=== PATIENT | male | born 1950 | race Caucasian/White ===

== ENCOUNTER → 2023-06-08 | Emergency (ER) | payer MEDICARE ==
[~2023-06-08] MED LIST: KETOROLAC 30 MG/ML INJ ONE; MORPHINE 4 MG/ML SYR ONE; ONDANSETRON 4 MG/2 ML VIAL ONE
[2023-06-08 02:35] LABS: Absolute Lymphocytes (CBC) 1.1 K/uL (0.7-4.9); MCV 90.9 fL (80-100); MPV 7.5 fL (7.6-11.3); Platelets 220 thou/uL (152-406); RBC Red Blood Cell Count 4.51 M/uL (4.33-5.43)
[2023-06-08 02:52] LABS: Albumin 3.3 g/dL (3.4-5.0); Bilirubin Total 0.5 mg/dL (0.2-1.0); Potassium 3.7 mEq/L (3.5-5.1); Protein, Total 7.3 g/dL (6.4-8.2)
[2023-06-08 03:12] LABS: Specific Gravity 1.029 (1.005-1.030); Urine Bacteria None Seen /HPF (<20); Urine Bilirubin NEGATIVE (Negative); Urine Blood 3+ (OVER) (Negative); Urine Clarity Extremely Turbid (Clear); Urine Color Yellow (Yellow); Urine Glucose TRACE (Negative); Urine Mucus Slight /HPF (None Seen); Urine Protein 1+ (Negative); Urine RBC >50 /HPF (None Seen); Urine Urobilinogen Normal (Normal)
--- NOTE | 2023-06-08 04:38 | ER ---
Nurse's Notes [facility] Name: Neil Nolen Age: 73 yrs Sex: Male : 1950 Arrival Date: 06/08/2023 Time: 01:33 Bed 5 Private MD: Diagnosis: Calculus of ureter Presentation: 06/08 01:54 Chief complaint: Patient states: abd pain started 2 days ago, rad to right flank. with rv nausea and vomiting. worse today. denies diarrhea and constipation. noted blood in urine, frequency and urgency. Coronavirus screen: At this time, the client does not indicate any symptoms associated with coronavirus-19. Ebola Screen: No symptoms or risks identified at this time. Initial Sepsis Screen: Does the patient meet any 2 criteria? No. Patient's initial sepsis screen is negative. Does the patient have a suspected source of infection? No. Patient's initial sepsis screen is negative. Risk Assessment: Do you want to hurt yourself or someone else? Patient reports no desire to harm self or others. Onset of symptoms was June 08, 2023. 01:54 Method Of Arrival: Ambulatory rv 01:54 Acuity: MAYE 3 rv Triage Assessment: 01:56 General: Appears in no apparent distress. Behavior is calm, cooperative. Pain: rv Complains of pain in abdomen Pain radiates to right flank. Neuro: Level of Consciousness is awake, alert, obeys commands, Oriented to person, place, time, situation. Cardiovascular: Capillary refill < 3 seconds Patient's skin is warm and dry. Respiratory: Airway is patent Respiratory effort is even, unlabored. GI: Abdomen is round distended, Pt is actively vomiting undigested food, Reports upper abdominal pain, nausea, vomiting. : Reports urinary frequency, blood in urine. Derm: Skin is intact. Historical: - Allergies: :56 No Known Allergies; rv - PMHx: :56 Hypertensive disorder; Hypercholesterolemia; rv - PSHx: :56 Coronary artery bypass graft; hernia repair; rv - Immunization history:: Adult Immunizations up to date. - Social history:: Smoking status: Patient denies any tobacco usage or history of. - Family history:: not pertinent. Screenin:58 [facility] ED Fall Risk Assessment (Adult) History of falling in the last 3 months, rv including since admission No falls in past 3 months (0 pts) Score/Fall Risk Level 0 - 2 = Low Risk Oriented to surroundings, Maintained a safe environment, Educated pt \T\ family on fall prevention, incl call for assistance when getting out of bed, Assessed \T\ reinforced patient's understanding of fall precautions. Abuse screen: Denies threats or abuse. Denies injuries from another. Nutritional screening: No deficits noted. Tuberculosis screening: No symptoms or risk factors identified. Assessment: 01:59 GI: Bowel sounds present X 4 quads. Abd is soft and non tender X 4 quads. rv 03:40 General: Pt c/o persistent pain to abdomen. Provider Notified . jw7 Vital Signs: 01:45 BP 161 / 74; Pulse 64; Resp 20; Temp 98; Pulse Ox 91% on 2 lpm NC; as9 01:54 BP 161 / 80; Pulse 86; Resp 16; Temp 98; Pulse Ox 93% ; Weight 146.06 kg; Height 6 ft. rv 1 in. ; 02:00 BP 160 / 76; Pulse 66; Resp 20; Pulse Ox 94% on 2 lpm NC; as9 03:00 BP 142 / 59; Pulse 66; Resp 19; Pulse Ox 92% on 2 lpm NC; as9 04:30 BP 128 / 53; Pulse 71; Resp 18; Temp 98; Pulse Ox 94% on R/A; as9 01:54 Body Mass Index 42.48 (146.06 kg, 185.42 cm) rv ED Course: 01:34 Patient arrived in ED. jj6 01:37 Cedric Pendleton MD is Attending Physician. rt 01:56 Triage completed. rv 01:56 Arm band placed on right wrist. rv 01:58 Patient has correct armband on for positive identification. Client placed on continuous rv cardiac and pulse oximetry monitoring. NIBP monitoring applied. night monitor on. 01:59 No provider procedures requiring assistance completed. rv 02:24 CBC with Diff Sent. as9 02:24 CMP Sent. as9 02:24 Lipase Sent. as9 02:25 Inserted saline lock: 20 gauge in right forearm, using aseptic technique. as9 03:28 CT Abd/Pelvis - IV Contrast Only In Process Unspecified. EDMS 04:36 Esvin Norton MD is Referral Physician. rt 04:56 Haroon Oconnor, JEISON is Primary Nurse. as9 05:05 Provided Education on: discharge medication, instructions and follow up given and as9 explained well to the patient and family.. 05:05 IV discontinued, intact, bleeding controlled, No redness/swelling at site. Pressure as9 dressing applied. Administered Medications: 02:24 Drug: Ondansetron IVP 4 mg IVP once; over 2 minutes Route: IVP; Site: right forearm; as9 04:58 Follow up: Response: No adverse reaction; Marked relief of symptoms; Pain is decreased; as9 RASS: Alert and Calm (0) 02:24 Drug: morphine IVP or IV 4 mg IVP once over 4 mins Route: IVP; Infused Over: 4 mins; as9 Site: right forearm; 04:58 Follow up: Response: No adverse reaction; Marked relief of symptoms; Pain is decreased; as9 RASS: Alert and Calm (0) 03:53 Drug: Ketorolac IVP 30 mg IVP once Route: IVP; Site: right forearm; jw7 04:57 Follow up: Response: No adverse reaction; Marked relief of symptoms as9 03:53 Drug: morphine IVP or IV 4 mg IVP once over 4 mins Route: IVP; Infused Over: 4 mins; jw7 Site: right antecubital; 04:57 Follow up: Response: No adverse reaction; Marked relief of symptoms; Pain is decreased as9 04:57 Follow up: Response: RASS: Alert and Calm (0) as9 Medication: 01:58 VIS not applicable for this client. rv Outcome: 04:37 Discharge ordered by . rt 04:59 Discharged to home ambulatory, as9 04:59 Condition: good 04:59 Discharge instructions given to patient, family, Instructed on discharge instructions, follow up and referral plans. medication usage, Demonstrated understanding of instructions, follow-up care, medications, 05:08 Patient left the ED. as9 Signatures: Dispatcher [employer] EDMS Damon Dai RN RN rv Loan [email or web address] Maria Guadalupe Oliva RN RN jw7 Cedric Pendleton MD MD rt Haroon Oconnor RN RN as9
--- NOTE | 2023-06-08 04:38 | EDPHYS ---
Physician Documentation [facility] Name: Neil Nolen Age: 73 yrs Sex: Male : 1950 Arrival Date: 06/08/2023 Time: 01:33 Bed 5 Private MD: ED Physician Cedric Pendleton HPI: 06/08 04:24 This 73 yrs old Male presents to ER via Ambulatory with complaints of Abdominal Pain, rt Low Back Pain, Urinary Incontinence. 04:24 Patient presents to the ED with a lower abdominal pain rating to the right flank for rt the past few days. Patient has blood in his urine. Reports increased urinary frequency. He denies other complaints at this time, symptoms are moderate severity, no other aggravating alleviating factors.. Historical: - Allergies: :56 No Known Allergies; rv - PMHx: :56 Hypertensive disorder; Hypercholesterolemia; rv - PSHx: :56 Coronary artery bypass graft; hernia repair; rv - Immunization history:: Adult Immunizations up to date. - Social history:: Smoking status: Patient denies any tobacco usage or history of. - Family history:: not pertinent. ROS: 04:24 Constitutional: Negative for fever, chills, and weight loss, Cardiovascular: Negative rt for chest pain, palpitations, and edema, Respiratory: Negative for shortness of breath, cough, wheezing, and pleuritic chest pain, MS/Extremity: Negative for injury and deformity, Skin: Negative for injury, rash, and discoloration, Neuro: Negative for headache, weakness, numbness, tingling, and seizure, 04:24 Abdomen/GI: Positive for abdominal pain, Negative for vomiting, 04:24 : Positive for Hematuria, frequency, Exam: 04:24 Constitutional: This is a well developed, well nourished patient who is awake, alert, rt and in no acute distress. Head/Face: Normocephalic, atraumatic. Chest/axilla: Normal chest wall appearance and motion. Nontender with no deformity. No lesions are appreciated. Cardiovascular: Regular rate and rhythm with a normal S1 and S2. No gallops, murmurs, or rubs. Normal PMI, no JVD. No pulse deficits. Respiratory: Lungs have equal breath sounds bilaterally, clear to auscultation and percussion. No rales, rhonchi or wheezes noted. No increased work of breathing, no retractions or nasal flaring. Skin: Warm, dry with normal turgor. Normal color with no rashes, no lesions, and no evidence of cellulitis. MS/ Extremity: Pulses equal, no cyanosis. Neurovascular intact. Full, normal range of motion. Neuro: Awake and alert, GCS 15, oriented to person, place, time, and situation. Cranial nerves II-XII grossly intact. Motor strength 5/5 in all extremities. Sensory grossly intact. Cerebellar exam normal. Normal gait. Psych: Awake, alert, with orientation to person, place and time. Behavior, mood, and affect are within normal limits. 04:24 Abdomen/GI: Mild distention noted, tenderness in suprapubic region without rebound, guarding, distention, Vital Signs: 01:45 BP 161 / 74; Pulse 64; Resp 20; Temp 98; Pulse Ox 91% on 2 lpm NC; as9 01:54 BP 161 / 80; Pulse 86; Resp 16; Temp 98; Pulse Ox 93% ; Weight 146.06 kg; Height 6 ft. rv 1 in. ; 02:00 BP 160 / 76; Pulse 66; Resp 20; Pulse Ox 94% on 2 lpm NC; as9 03:00 BP 142 / 59; Pulse 66; Resp 19; Pulse Ox 92% on 2 lpm NC; as9 04:30 BP 128 / 53; Pulse 71; Resp 18; Temp 98; Pulse Ox 94% on R/A; as9 01:54 Body Mass Index 42.48 (146.06 kg, 185.42 cm) rv MDM: 01:45 Patient medically screened. rt 04:41 Differential diagnosis: Ureteral stone, urinary retention, gross hematuria. Data rt reviewed: vital signs, nurses notes, lab test result(s), radiologic studies. I considered the following discharge prescriptions or medication management in the emergency department Medications were administered in the Emergency Department. See MAR. Independent interpretation of the following test(s) in the Emergency Department CT Scan: My interpretation is Ureteral stone seen on interpretation of CT scan images. Care significantly affected by the following chronic conditions: Hypertension. Response to treatment: the patient's symptoms have markedly improved after treatment. 06/08 01:54 Order name: CBC with Diff; Complete Time: 03:26 rt 06/08 01:54 Order name: CMP; Complete Time: 03:26 rt 06/08 01:54 Order name: Lipase; Complete Time: 03:26 rt 06/08 01:54 Order name: Urinalysis w/ reflexes; Complete Time: 03:26 rt 06/08 03:16 Order name: Urine Culture EDMS 06/08 01:54 Order name: CT Abd/Pelvis - IV Contrast Only rt 06/08 01:54 Order name: IV Saline Lock; Complete Time: 01:59 rt 06/08 01:54 Order name: Labs collected and sent; Complete Time: 01:59 rt Administered Medications: 02:24 Drug: Ondansetron IVP 4 mg IVP once; over 2 minutes Route: IVP; Site: right forearm; as9 04:58 Follow up: Response: No adverse reaction; Marked relief of symptoms; Pain is decreased; as9 RASS: Alert and Calm (0) 02:24 Drug: morphine IVP or IV 4 mg IVP once over 4 mins Route: IVP; Infused Over: 4 mins; as9 Site: right forearm; 04:58 Follow up: Response: No adverse reaction; Marked relief of symptoms; Pain is decreased; as9 RASS: Alert and Calm (0) 03:53 Drug: Ketorolac IVP 30 mg IVP once Route: IVP; Site: right forearm; jw7 04:57 Follow up: Response: No adverse reaction; Marked relief of symptoms as9 03:53 Drug: morphine IVP or IV 4 mg IVP once over 4 mins Route: IVP; Infused Over: 4 mins; jw7 Site: right antecubital; 04:57 Follow up: Response: No adverse reaction; Marked relief of symptoms; Pain is decreased as9 04:57 Follow up: Response: RASS: Alert and Calm (0) as9 Disposition Summary: 06/08/23 04:37 Discharge Ordered Notes: Location: Home rt Problem: new rt Symptoms: have improved rt Condition: Stable rt Diagnosis - Calculus of ureter rt Followup: rt - With: Esvin Norton MD - When: 7 - 10 days - Reason: Discharge Instructions: - Discharge Summary Sheet rt - Kidney Stones rt Forms: - Medication Reconciliation Form rt - Thank You Letter rt - Antibiotic Education rt - Prescription Opioid Use rt - Patient Portal Instructions rt - Leadership Thank You Letter rt Prescriptions: - acetaminophen-codeine 300-30 mg Oral tablet - take 1 tablet ORAL route every 6 hours as needed for pain; 18 tablet; Refills: rt 0, Product Selection Permitted - ondansetron 4 mg Oral Tablet,disintegrating - take 1 tablet ORAL route every 6 hours as needed for nausea; 18 tablet; rt Refills: 0, Product Selection Permitted Signatures: Dispatcher [employer] Damon Johnson RN RN rv Maria Guadalupe Oliva RN RN jw7 Cedric Pendleton MD MD rt Haroon Oconnor RN RN as9
[2023-06-08 05:13] VITALS: TEMP 98
[2023-06-08 05:37] VITALS: BP 128/53; O2SAT 94
--- NOTE | 2023-06-08 19:04 | RAD REPORT ---
EXAM DESCRIPTION: CT - Abdomen Pelvis W Contrast - 06/08/2023 6:22 am CLINICAL HISTORY: The patient is 73 years old and is Male; ABD PAIN TECHNIQUE: Axial computed tomography images of the abdomen and pelvis with intravenous contrast. S agittal and coronal reformatted images were created and reviewed. This CT exam was performed using one or more of the following dose reduction techniques: automated exposure control, adjustment of t he mA and/or kV according to patient size, and/or use of iterative reconstruction technique. COMPARISON: No relevant prior studies available. FINDINGS: Lung bases: Unremarkable. No mass. No consolidation. ABDOMEN: Liver: Hepatomegaly. Gallbladder and bile ducts: Unremarkable. No calcified stones. No ductal dilation. Pancreas: Unremarkable. No mass. No ductal dilation. Spleen: Unremarkable. No splenomegaly. Adrenals: Unremarkable. No mass. Kidneys and ureters: 3 mm stone in the lower right ureter. Mild right hydroureteronephrosis and p erinephric/periureteral stranding. 2.3 cm simple cyst in the right kidney. No follow-up imaging is recommended. Stomach and bowel: Scattered colonic diverticula. No obstruction. No mucosal thickening. PELVIS: Appendix: The appendix is normal. Bladder: Unremarkable. Reproductive: Unremarkable as visualized. ABDOMEN and PELVIS: Intraperitoneal space: Unremarkable. No free air. No significant fluid collection. Bones/joints: Disc space narrowing with degenerative endplate changes in the spine. No acute fracture. No dislocation. Soft tissues: Unremarkable. Vasculature: Scattered atherosclerotic vascular calcifications. No abdominal aortic aneurysm. Lymph nodes: Unremarkable. No enlarged lymph nodes. IMPRESSION: 3 mm stone in the lower right ureter. Mild right hydroureteronephrosis and perinephric/p eriureteral stranding. Electronically signed by: Neil Rice MD 06/08/2023 04:22 AM [employer] Due to temporary technical issues with the PACS/Fluency reporting system, reports are being signed by the in house radiologists without review as a courtesy to insure prompt reporting. The interpreting radiologist is fully responsible for the content of the report.
== END ==
LOC: ER 01:33
DX: N20.1 Calculus of ureter (principal); I10 Essential (primary) hypertension; Z95.1 Presence of aortocoronary bypass graft
CPT/HCPCS: 87088; 85025; 81001; 87086; 36415; 83690; 80053; 74177; Q9967; J2405; 99285